=== PATIENT | female | born 1945 | race Caucasian/White ===

== ENCOUNTER 2024-01-19 23:05 | Emergency (ER) | payer MEDICARE, BC, SELFPAY ==
[2024-01-19 23:22] VITALS: BP 168/69
[2024-01-19 23:46] VITALS: BMI 34.6
[2024-01-19 23:53] VITALS: BP 147/74
[2024-01-19 23:57] LABS: % Eosinophils 5.4 % (0-6); % Immature Granulocytes 0.8 % (0-0.5); % Lymphocytes 21.4 % (20.5-51.1); % Monocytes 13.8 % (1.7-9.3); % Neutrophils 57.6 % (42.2-75.2); Absolute Basophils 0.1 10^3/uL (0-0.2); Absolute Eosinophils 0.3 10^3/uL (0-0.7); Absolute Lymphocytes 1.1 10^3/uL (1.2-3.4); Absolute Monocytes 0.7 10^3/uL (0.1-0.6); Absolute Neutrophils 2.9 10^3/uL (1.4-6.5); Hematocrit 34.6 % (37.0-47.0); Hemoglobin 11.8 g/dL (12.0-16.0); Mean Corp Hgb Conc. 34.1 g/dL (33.0-37.0); Mean Corpuscular Hgb 32.3 pg (27.0-31.0); Mean Corpuscular Volume 94.8 fL (81.0-99.0); Mean Platelet Volume 9.6 fL (7.4-10.4); Nucleated Red Blood Cells % 0 %; Platelet Count 172 10^3/uL (130-400); Red Blood Cell Count 3.65 10^6/uL (4.20-5.40); Red Cell Dist. Width 13.9 % (11.5-14.5)
[2024-01-20] VITALS: BP 151/75
[2024-01-20 00:17] LABS: ALT (SGPT) 15 U/L (0-35); AST (SGOT) 26 U/L (14-36); Albumin 3.9 g/dl (3.5-5.0); Alkaline Phosphatase 80 U/L (38-126); Blood Urea Nitrogen 34 mg/dl (7-17); Calcium 9.6 mg/dl (8.4-10.2); Carbon Dioxide 25 mmol/L (22-30); Chloride 106 mmol/L (98-107); Estimated Creatinine Clearance 53 ml/min; Glucose 56 mg/dl (70-99); Sodium 140 mmol/L (135-145); Total Bilirubin 0.4 mg/dl (0.2-1.3); Total Protein 6.2 g/dl (6.3-8.2); eGFR > 60.00
[2024-01-20 00:29] LABS: NT-proBNP 348 pg/ml; Troponin I < 0.012 ng/ml
[2024-01-20 01:26] VITALS: BP 191/85
[2024-01-20] MEDS: MAALOX 50 PO (01:47)
[2024-01-20 01:50] LABS: Glucose - Point of Care 91 mg/dl (70-99)
--- NOTE | 2024-01-20 01:57 | ED.GENMED ---
History of Present Illness
General
Chief Complaint: Chest Pain
Source: patient
Exam Limitations: none
Time Seen by Provider: 01/19/24 23:43
Nursing documentation reviewed up to this point in time: agreed with
History of Present Illness
History of Present Illness:
This is a 78-year-old woman who has history of hypertension, hyperlipidemia, osteoporosis, GERD, who complains of left-sided chest discomfort which she describes as a pressure that began around 9 PM tonight shortly after washing the dishes.
Left-sided chest pressure described as an intermittent brief pressure sensation that lasts 1 to 2 seconds and recurs every few minutes. Chest pressure has been nonradiating and no other associated symptoms. No cough no shortness of breath, no
palpitations, no dizziness or lightheadedness, no nausea nor vomiting, no diaphoresis. No history of similar episodes of chest discomfort in the past.
No history of CAD. She does follow with a boiler operator every [address], [address] Raymundo Archibald and reports undergoing an unremarkable stress test a few years ago.
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 Currently wearing a walking boot and has been doing well. She does admit to
significant activity over this past weekend, admits that she 'has not been sitting still' She has had no chest pain or shortness of breath nor fatigue with activity throughout the weekend.
She does note some mild swelling of her right lower leg and believes this may be related to increased activity throughout this past weekend.
Her daily medications include: Nexium, Crestor, metoprolol succinate, hydralazine, low-dose aspirin, Zetia, vitamin D 50,000 units once every 2 weeks, calcium supplement, fish oil, B complex, align.
She resides 6 months out of the year in [place], 6 months locally.
She did suffer COVID URI in November but recovered uneventfully.
Past History
Past History
ED Past Medical History: GERD, HTN, Hypercholesterolemia and Other ( osteoporosis)
ED Past Surgical History: Cholecystectomy, Gynecological and Orthopedic
Social History
Tobacco: Non-smoker
Alcohol: None
Personal:
Living: with family
Employment: Retired
Family History
Family History: Other (Noncontributory)
Phy Exam
Physical Exam
Physical Exam:
GENERAL: 78-year-old woman appears her stated age, bright and alert, pleasant, appears in no acute distress.
EYE: anicteric
NECK: Supple, nontender, no meningismus, no significant adenopathy.
ENT: oral mucosa is moist. No rhinorrhea.
CARDIAC: Regular rate and rhythm. no murmur. No palpable chest wall tenderness.
LUNGS: Clear breath sounds bilaterally, no acute respiratory distress, no wheezes/rales/rhonchi
ABDOMEN: Soft, nondistended, mild tenderness to palpation left upper quadrant, no r/g, no cvat. Mildly hyperactive bowel sounds.
NEUROLOGICAL: Alert and oriented x3, no focal neuro deficits.
SKIN: Warm and dry, normal color, skin intact. No rash.
MUSCULOSKELETAL: There is mild edema right lower leg without associated tenderness, negative Homans, no palpable cords. There is a dry and intact right distal foot dressing. Peripheral pulses are full and equal b/l. No palpable tenderness.
PSYCH: Normal and appropriate interaction.
Scores
Heart Score for Chest Pain Patients
STEMI patient?: No
History: Slightly or Non-Suspicious
ECG: Normal
Age: >/= 65 years
Risk Factors: 1 or 2 Risk Factors
Troponin: </= Normal Limit
Heart Score for Chest Pain Patients: 3
Heart Score Risk: 2.5% MACE over next 6 weeks
Course
Orders/Labs/Results
Orders:
Orders
01/19/24 23:13
Electrocardiogram (*1) Urgent
Reason for Study: Other
Other Reason for Exam: Respiratory Distress
Cardiac Monitoring- Treatment ONCE
EKG- Treatment ONCE
IV Insert/Care/Rem.- Treatment PRN
CR Chest - 2 Views Urgent
Comment:
Reason For Exam: respiratory distress
O2 Therapy [RESP] Urgent
Titrate/Wean O2 to maintain O2 sat greater than (%): 93
Special Instructions: TO MAINTAIN CONTINUOUS O2 SATS >/= 93%
Pulse Ox/cont/shift [RESP] Urgent
Quantity: 1
Special Instructions: continuous pulse ox
01/19/24 23:46
Complete Blood Count/With Diff Urgent
Comprehensive Metabolic Panel Urgent
NT-proBNP Urgent
Troponin I Urgent
01/20/24 00:25
US Periph Venous LOWER Ext RT Urgent
Comment:
Reason For Exam: RLE edema, R foot(toe surg) 01/06/24
01/20/24 01:31
Bedside Glucose- Treatment ONCE
01/20/24 01:34
Mag Hydrox/Al Hydrox/Simeth [Maalox] 30 ml Phenobarb/Hyoscy/Atropine/Scop [] 10 ml Viscous Lidocaine 2% [Xylocaine Viscous Cup] 10 ml PO NOW
01/20/24 01:44
Mag Hydrox/Al Hydrox/Simeth [Maalox] 30 ml .ROUTE .STK-MED ONE
Phenobarb/Hyoscy/Atropine/Scop [] 10 ml .ROUTE .STK-MED ONE
Viscous Lidocaine 2% [Xylocaine Viscous Cup] 15 ml .ROUTE .STK-MED ONE
01/20/24 01:51
Troponin I Urgent
Abnormal Lab Results
01/19/24
23:46
RBC 3.65 L 10^6/uL
(4.20-5.40)
Hgb 11.8 L g/dL
(12.0-16.0)
Hct 34.6 L %
(37.0-47.0)
MCH 32.3 H pg
(27.0-31.0)
Absolute Lymphs (auto) 1.1 L 10^3/uL
(1.2-3.4)
Absolute Monos (auto) 0.7 H 10^3/uL
(0.1-0.6)
Immature Gran % 0.8 H %
(0-0.5)
Monocytes % 13.8 H %
(1.7-9.3)
BUN 34 H mg/dl
(7-17)
Glucose 56 L mg/dl
(70-99)
Total Protein 6.2 L g/dl
(6.3-8.2)
01/19/24 23:46
01/19/24 23:46
Vital Signs
Initial and Last Documented VS:
Initial Vital Signs
Temp Pulse Resp BP Pulse Ox
97.9 F 47 20 168/69 98
01/19/24 23:22 01/19/24 23:22 01/19/24 23:22 01/19/24 23:22 01/19/24 23:22
Last Documented Vital Signs
Temp Pulse Resp BP Pulse Ox
97.9 F 70 17 153/81 94
01/19/24 23:22 01/20/24 03:00 01/20/24 03:00 01/20/24 03:00 01/20/24 03:00
MDM/Problems Addressed
Differential Diagnosis Includes:
Concern for ACS, GERD, pneumonia, pleurisy, pleural effusion, gastritis, constipation.
With recent toe surgery and mild swelling of right calf must consider DVT/PE. It is reassuring that patient has had no shortness of breath, no dyspnea on exertion.
EKG shows normal sinus rhythm with PACs/bigeminy and note of right bundle branch block which is new compared to previous EKG 2006. Patient states she has a known right bundle branch block.
Will check labs, troponin, chest x-ray as well as venous Doppler right lower extremity. Patient is currently chest pain-free and comfortable and states intermittent brief episodes of chest pain resolved shortly after arrival to the ED.
Chronic conditions affecting care: HTN and Other (Hyperlipidemia, GERD)
Acute Exacerbation and/or Progression of Chronic Illness: Other (GERD)
*Radiology
Radiology exam reviewed: preliminary read by ED provider (Chest x-ray is unremarkable, similar to previous 2006 save for moderate thoracic kyphosis and thoracic spine DJD is new compared to previous.) and other (Venous Doppler right lower extremity
negative for DVT)
*Pulse Oximetry
Patient hypoxic: no
*EKG
Interpreted by ED Provider?: Yes
Interpretation: abnormal
Comparison EKG: changes noted (Right bundle branch block, PACs new compared to previous EKG October 2006)
Rate: normal
Rhythm: sinus and PAC's (Bigeminy)
White: normal axis
Interval: normal interval
QRS Pattern: right bundle branch block
Ischemia: no ischemia
*Gas Line Installer Supervisor Interpretation
Rate: normal
Interpretation: normal
Rhythm: sinus
*Critical Care Note
Total Time (30-74mins, 75-104mins- exclusive of procedures): Not Applicable
Update Note
Update Note:
01/20/2024 01:30 AM
Labs show very mild anemia with hemoglobin of 11.8, normal white blood cell count of 5.
Elevated BUN of 34 with normal creatinine, normal electrolytes. Glucose mildly low at 56. Patient continues to have no symptoms of hypoglycemia.
Initial troponin is negative.
Chest x-ray is unremarkable.
Venous Doppler right lower extremity negative for DVT.
Patient has had no return of intermittent left chest spasms/pressure but now notes very mild ache of her left chest. No other associated symptoms.
She continues with mild tenderness to palpation left upper abdomen on exam but otherwise denies abdominal pain. Mildly hyperactive bowel sounds but continues to deny nausea.
Labs are reassuring, she remains afebrile thus diverticulitis, colitis are unlikely and she continues to deny abdominal pain. She may have an element of gastritis/left hemidiaphragmatic irritation. Will trial a GI cocktail.
Will check bedside glucose and will repeat troponin now.
01/20/2024 0307 AM
Patient reports complete relief of left chest discomfort after GI cocktail.
Accu-Chek normal at 91.
Repeat troponin remains flat/negative.
I suspect her intermittent brief left-sided chest discomfort is GERD in nature.
She is noted to have significant systolic hypertension which overall improving currently 150/80.
Will discharge to home with recommendations she follow-up with her boiler operator Dr. Real for recheck.
Return precautions discussed.
ED Attending Note
-
Portions of this chart may have been created with voice recognition software.� Occasional wrong word or��sound alike� substitutions may have occurred due to the inherent limitations of voice recognition software.
Discharge Plan
Departure
Patient Disposition: Home (Routine Discharge)
Date of Disposition: 01/20/24
Time of Disposition: 03:05
Patient with high blood pressure during this ER visit?: No
Condition: Good
Discharge Problem:
Nonspecific chest pain
Instructions: Acid reflux and GERD in adults, Chest Pain NON-[employer] Supervisor [employer] Follow Up
Prescriptions:
No Action
hydrocodone-acetaminophen [Vicodin] 1 EACH tablet
1 ea PO Q4HPRN PRN (Reason: pain) Qty: 20 0RF
Referrals:
Raymundo Archibald MD [Non-Admitting Privileges] - Call in 1-3 days for appt
Maksim Velez MD [Family Provider] -
Interventions
Interventions:
*Risk Screen - Suicide Last Done: 01/19/24 23:47
*General Assessment Last Done: 01/19/24 23:47
*Neglect/Abuse Screening Last Done: 01/19/24 23:47
ED- Cardiac Assessment Last Done: 01/19/24 23:47
Discharge Date and Time
Print Language: GREEK
[2024-01-20 02:00] VITALS: BP 173/85
[2024-01-20 02:26] LABS: Troponin I < 0.012 ng/ml
[2024-01-20 03:00] VITALS: BP 153/81
== END 2024-01-20 03:19 | disposition home or self-care (01) ==
LOC: EMR 23:05
PROVIDERS: EMERGENCY PHYSICIAN Emergency Medicine; FAMILY PHYSICIAN Internal Medicine
DX: R07.89 Other chest pain (principal); I10 Essential (primary) hypertension; K21.9 Gastro-esophageal reflux disease without esophagitis; E78.5 Hyperlipidemia, unspecified; D64.9 Anemia, unspecified; R22.41 Localized swelling, mass and lump, right lower limb; Z79.899 Other long term (current) drug therapy
CPT/HCPCS: 71046; 80053; 82962; 83880; 84484; 85025; 93005; 93971; 99284